=== PATIENT | male | born 1955 | race Caucasian/White ===

== ENCOUNTER → 2016-07-27 | Outpatient (CLI) | payer BC ==
[~2016-07-27] MED LIST: ALBU83IN INH; ASPI1TAB PO; IRON65TA PO; LABE10TAB PO; LOSA100T36 PO; PANT40TA2 PO; PERC10TA17 PO; PRED10PA PO; PRED10TA PO; SIMV20TA2 PO; SYMB16INH INH; iron
--- NOTE | 2016-07-28 10:17 | REP ---
PET/CT: History: Restaging lung cancer. Comparisons: Comparison PET-CT studies are from February 10, 2016 and August 06, 2015. Comparison CT studies, the most recent of which is from July 12, 2016 showed a new cavitating somewhat irregular nodule in the right lower lobe. This measures [address] TECHNIQUE: 64 minutes following the intravenous injection of a 7.2 mCi dose of F-18 FDG, three-dimensional PET scintigraphy is acquired from the skull base to the proximal thighs. Triplanar noncontrast CT scanning is acquired through the same anatomic range for attenuation correction, and image registration with scan parameters optimized to minimize radiation exposure to the patient. PET scintigraphy and CT datasets were fused and displayed on a workstation with multiplanar and projection display capability. PET/CT Findings: There is new asymmetric hypermetabolic uptake in the floor of the mouth and tongue base on the left with an area of hypermetabolic uptake maximum standard uptake value ranging up to 8.0. This should be correlated with physical exam findings and conventional head and neck imaging. There is somewhat asymmetric uptake in the aryepiglottic folds but this is likely normal variant. An Cpoism-O-Vkjp catheter is again seen in place. There is hypermetabolic garima uptake in the left paratracheal region with maximum standard uptake value 8.0. This garima focus measures 2.3 cm. This appears to be recurrent activity compared to the original PET-CT and the January PET-CT. The new cavitary nodule in the right lower lobe on recent CT study is hypermetabolic, maximum standard uptake value 6.2. This is consistent with a metastatic nodule. There is a small left pleural effusion and a moderate pericardial effusion. No hypermetabolic uptake is seen within either fluid collection. No adrenal hypermetabolic uptake is observed. FDG distribution in the abdomen and pelvis remains unremarkable. Impression: 1. There is evidence of recurrent left mediastinal hypermetabolic adenopathy. 2. The cavitary new nodule in the right lower lobe shows hypermetabolic suspicious uptake. 3. There is abnormal hypermetabolic uptake asymmetrically in the left posterior tongue base and floor of the mouth. This is of uncertain significance. Metastatic adenopathy cannot be excluded. Consider soft-tissue neck CT. Signed by Jeff Porter MD 07/28/2016 12:07 P
== END ==
LOC: M RAD 16:34
PROVIDERS: ATTEND Internal Medicine Medical Oncology
DX: R63.4 Abnormal weight loss (principal); R19.7 Diarrhea, unspecified; K58.9 Irritable bowel syndrome, unspecified
CPT/HCPCS: 78815; A9552

== ENCOUNTER → 2016-08-22 | Day surgery (SDC) | payer BC ==
[~2016-08-22] VITALS: Ht 175.3 cm; Wt 68.4 kg
[~2016-08-22] MED LIST changes: +EPINEPHrine 1MG/10ML SYRINGE 1.5IN As Ordered ONE; +GLYCOPYRROLATE INJ 0.2 MG/ML 2 ML VIAL As Ordered ONE; +LIDOCAINE 2% INJ 100 MG/5 ML SDV (FOR ANES.) As Ordered ONE; +LIDOCAINE VISCOUS 2% SOLN 15ML UDC As Ordered ONE; +LIDOCAINE VISCOUS 2% SOLN 15ML UDC XX ONE; +LR 1,000 ML IV SCH; +MIDAZOLAM INJ 2 MG/2 ML VIAL (J2250) As Ordered ONE; +NEOSTIGMINE 1MG/ML 5 ML SYRINGE (J2710) As Ordered ONE; +NORCO, ANEXSIA 5/325MG TABLET (HYDROcodone/ACETAMINOPHEN) PO PRN; +ONDANSETRON 4MG/2ML VIAL (J2405) IV PRN; +PERC5TAB6 PO; +PHENYLephrine HCL 500 MCG/5 ML (100MCG/ML) SYRINGE (J2370) As Ordered ONE; +PROPOFOL 200 MG/20 ML VIAL As Ordered ONE; +ROCURONIUM BROMIDE 50 MG/5 ML VIAL As Ordered ONE; +SLOW45TA PO; +dexameTHASONE 4 MG/ML 1ML VIAL (J1100) As Ordered ONE; +fentaNYL 100 MCG/2 ML INJECTION (J3010) As Ordered ONE; +fentaNYL 100 MCG/2 ML INJECTION (J3010) IV PRN
--- NOTE | 2016-08-22 10:52 | RO ---
DATE OF PROCEDURE: 08/22/2016 PREOPERATIVE DIAGNOSES: Right lower lobe lesion, abnormal chest CT, left lower lobe abnormalities, hilar abnormalities on the left. POSTPROCEDURE DIAGNOSES: Right lower lobe lesion, abnormal chest CT, left lower lobe abnormalities, hilar abnormalities on the left. FINDINGS: The superior segment of the left lower lobe was abnormal with pale mucosa and radiation changes. There was a saber shaped trachea. PROCEDURE: Bronchoscopy with electromagnetic navigation to the right lower lobe lesion and endobronchial ultrasound of the mediastinum and left hilar region. PROCEDURALIST: Dr. Ibanez BRUSH MACHINE SETTER: None. SPECIMENS OBTAINED: 1. Right lower lobe cytology needle brush 2. Right lower lobe transbronchial biopsy. 3. Right lower lobe GenCut FNA 4. Right lower lobe lavage. COMPLICATIONS: There were no observed complications. DESCRIPTION OF PROCEDURE: After informed consent was reviewed with the patient in the preoperative area, he was brought back to the operating room suite. Time-out was performed with two patient identifiers identifying correct site, correct position. The patient was placed in the supine position and general anesthesia was initiated. After adequate sedation, the patient was handed over to mt. The 1T-180 bronchoscope was then inserted through the 8.5 endotracheal tube with Cetacaine spray. The airways were abnormal. The trachea was saber shaped. Diane was sharp without splaying. Right and left mainstem bronchus was normal except for mucus. Right upper lobe, right middle lobe and lower lobe were normal without endobronchial lesions. RB 1 through 10 was normal without endobronchial lesions. The left upper lobe and lingula were normal. LB1 through 5 was normal without endobronchial lesions. The superior basal segment of the left lower lobe was swollen and pale with a fishmouth opening. There were no other abnormalities in the left lower lobe. No endobronchial lesions. The bronchoscope was then withdrawn into the trachea. Automatic registration was performed and confirmed. The right lower lobe lesion was easily navigated to in the superior basal segment. Fluoroscopy confirmed adequate placement. Cytology brushes and cytology needle brushes were then taken. This was followed by multiple transbronchial biopsies. This was followed by a GenCut fine needle aspiration times two. After this was performed, right lower lobe lavage was performed of this area. After assurance of adequate hemostasis, the bronchoscope was removed. The endobronchial ultrasound was then placed. The entire mediastinum was viewed. There was no significant lymphadenopathy available for biopsy 4R-4L stations were viewed with normal appearing tissue and vasculature. The subcarinal area was also reviewed with normal vasculature. The left hilum and airways of the left lower lobe were also ultrasounded without any obvious source of biopsy. I also ultrasounded the right hilum without any significant adenopathy. Therefore no endobronchial ultrasound samples were obtained. Pictures were taken of multiple garima stations to show that there was no significant presence of lymph tissue. The bronchoscope was then removed. The patient was extubated and is in recovery. There were no observed complications. Postprocedure chest x-ray is pending.
--- NOTE | 2016-08-22 10:54 | REP ---
FLUOROSCOPIC GUIDANCE FOR ENDOSCOPIC LUNG BIOPSY: 08/22/2016. Clinical history: Right lower lobe hot nodule on PET scan, nodule on CT. This single view from C-arm fluoroscopy provided to Dr. Ibanez of the Pulmonology Division shows a right mainstem bronchus and scope with probe extending into the right lower lobe overlying a density consistent with the known right lower lobe peripheral nodule. Fluoroscopy time 0.4 minutes. Signed by Tang Wells MD 08/22/2016 04:20 P
--- NOTE | 2016-08-22 11:07 | REP ---
AP PORTABLE CHEST: 08/22/2016 at 10:45 A.M. Clinical history: Status post bronchoscopy for superior segment right lower lobe nodule. Comparison portable chest 06/21/2016, CT chest 06/21/2016, PET CT 07/27/2016. Indwelling left subclavian port catheter tip in SVC again seen. There is some perihilar fullness and peripheral stranding in the perihilar region on the left again seen with retrocardiac density that may reflect atelectasis or effusion. Opacity in the right mid lung zone representing the nodule seen on PET CT and chest CT as well as the prior radiograph. No pneumothorax or right effusion. The perihilar changes and retrocardiac opacity on the left are increased since the June exam. Signed by Tang Wells MD 08/22/2016 04:21 P
[2016-08-22 11:40] VITALS: BP 148/89
== END | disposition home or self-care (01) ==
LOC: M SDC 07:58
PROVIDERS: ATTEND Internal Medicine Pulmonary Disease
DX: C34.32 Malignant neoplasm of lower lobe, left bronchus or lung (principal); C10.9 Malignant neoplasm of oropharynx, unspecified; J44.9 Chronic obstructive pulmonary disease, unspecified; I10 Essential (primary) hypertension; E78.00 Pure hypercholesterolemia, unspecified; I73.9 Peripheral vascular disease, unspecified; K21.9 Gastro-esophageal reflux disease without esophagitis; R29.898 Other symptoms and signs involving the musculoskeletal system; Z79.899 Other long term (current) drug therapy; Z87.891 Personal history of nicotine dependence; Z95.828 Presence of other vascular implants and grafts; Z92.21 Personal history of antineoplastic chemotherapy; Z92.3 Personal history of irradiation
CPT/HCPCS: 31623; 31624; 31627; 31628; 31629; 71010; 76000; 88104; 88108; 88172; 88173; 88305; 88313; J1100; J2250; J2370; J2710; J3010

== ENCOUNTER → 2016-08-24 | Day surgery (SDC) | payer BC ==
[~2016-08-24] VITALS: Ht 175.3 cm; Wt 69.6 kg
[~2016-08-24] MED LIST changes: -EPINEPHrine 1MG/10ML SYRINGE 1.5IN As Ordered ONE; +EPINEPHrine 1MG/ML INJ 30ML MD-VIAL As Ordered ONE; +EPINEPHrine 1MG/ML INJ 30ML MD-VIAL XX ONE; -LIDOCAINE VISCOUS 2% SOLN 15ML UDC As Ordered ONE; -LIDOCAINE VISCOUS 2% SOLN 15ML UDC XX ONE; +LIDOCAINE W/EPINEPHRINE 1% 20ML VIAL As Ordered ONE; +MEPERIDINE INJ 25 MG/ML VIAL (J2175) IV PRN; +METHYLENE BLUE 1% 10 ML VIAL (Q9968) As Ordered ONE; +METOCLOPRAMIDE INJ 10MG/2ML VIAL (J2765) IV PRN; -NORCO, ANEXSIA 5/325MG TABLET (HYDROcodone/ACETAMINOPHEN) PO PRN; +ONDANSETRON 4MG/2ML VIAL (J2405) As Ordered ONE; +PERCOCET 5MG/325MG TAB PO PRN; +SEVOFLURANE INHAL SOLN 250 ML BTL As Ordered ONE; -dexameTHASONE 4 MG/ML 1ML VIAL (J1100) As Ordered ONE; +dexameTHASONE 4 MG/ML 1ML VIAL (J1100) IV ONE
[2016-08-24 14:40] VITALS: BP 119/65
--- NOTE | 2016-08-25 08:35 | RO ---
DATE OF PROCEDURE: 08/24/2016 PREPROCEDURE DIAGNOSIS: Swelling of the left base of the tongue. POSTPROCEDURE DIAGNOSIS: Swelling of the left base of the tongue. PROCEDURE PERFORMED: Direct suspension laryngoscopy with biopsy of the left base of the tongue. SURGEON: Jacob Lopez MD BLASTING CLAY MINER: ANESTHESIA: General. CLINICAL PREAMBLE: This 60-year-old man with a history of squamous cell carcinoma, as well as lung carcinoma and is being considered for additional chemotherapy. CT scan of the neck revealed swelling of the left base of the tongue. Biopsy of the base of tongue tissue is being considered to allow better selection of the chemotherapy regimen. As such, surgery listed above has been discussed. The patient understood and consented to the procedure. DESCRIPTION OF PROCEDURE: The patient was identified in preoperative holding and brought to the operating room in stable condition. He was laid in supine position on the operating table. The patient received general anesthesia followed by orotracheal intubation with a #6 endotracheal tube without incident. The patient was prepped and draped in the usual fashion for the procedure. The upper was protected using the wet 4 x 4 sponge. Bimanual palpation of the oral tongue, base of tongue, buccal mucosa, posterior pharyngeal wall and lateral pharyngeal wall showed some fullness over the left tongue base area. The Dedo Pilling laryngoscope was introduced. There was no mucosal lesion noted in the oral cavity, oropharynx, supraglottis, false cords, and the true cords. The rigid scope was then directed towards the left base of tongue area. Biopsies were obtained from the left base of tongue region. Hemostasis was using cottonoid pledgets soaked in 1:100,000 epinephrine. At the end of the procedure, sponge and instrument counts were correct. No complications. Estimated blood loss was less than 2 mL. General anesthesia was reversed, and the patient was extubated and brought to the recovery room in stable condition.
== END | disposition home or self-care (01) ==
LOC: M SDC 09:53
PROVIDERS: ATTEND Otolaryngology
DX: R22.0 Localized swelling, mass and lump, head (principal); C10.9 Malignant neoplasm of oropharynx, unspecified; C34.32 Malignant neoplasm of lower lobe, left bronchus or lung; J38.00 Paralysis of vocal cords and larynx, unspecified; K21.9 Gastro-esophageal reflux disease without esophagitis; I10 Essential (primary) hypertension; J42 Unspecified chronic bronchitis; J34.2 Deviated nasal septum; R06.02 Shortness of breath; Z79.899 Other long term (current) drug therapy; Z87.891 Personal history of nicotine dependence; Z92.21 Personal history of antineoplastic chemotherapy; Z92.3 Personal history of irradiation; Z95.828 Presence of other vascular implants and grafts
CPT/HCPCS: 31535; 88305; J1100; J2250; J2370; J2405; J2710; J3010; Q9968

== ENCOUNTER → 2016-08-26 | Outpatient (REF) | payer BC ==
[~2016-08-26] MED LIST changes: -EPINEPHrine 1MG/ML INJ 30ML MD-VIAL As Ordered ONE; -EPINEPHrine 1MG/ML INJ 30ML MD-VIAL XX ONE; -GLYCOPYRROLATE INJ 0.2 MG/ML 2 ML VIAL As Ordered ONE; -LIDOCAINE 2% INJ 100 MG/5 ML SDV (FOR ANES.) As Ordered ONE; -LIDOCAINE W/EPINEPHRINE 1% 20ML VIAL As Ordered ONE; -LR 1,000 ML IV SCH; -MEPERIDINE INJ 25 MG/ML VIAL (J2175) IV PRN; -METHYLENE BLUE 1% 10 ML VIAL (Q9968) As Ordered ONE; -METOCLOPRAMIDE INJ 10MG/2ML VIAL (J2765) IV PRN; -MIDAZOLAM INJ 2 MG/2 ML VIAL (J2250) As Ordered ONE; -NEOSTIGMINE 1MG/ML 5 ML SYRINGE (J2710) As Ordered ONE; -ONDANSETRON 4MG/2ML VIAL (J2405) As Ordered ONE; -ONDANSETRON 4MG/2ML VIAL (J2405) IV PRN; -PERCOCET 5MG/325MG TAB PO PRN; -PHENYLephrine HCL 500 MCG/5 ML (100MCG/ML) SYRINGE (J2370) As Ordered ONE; -PROPOFOL 200 MG/20 ML VIAL As Ordered ONE; -ROCURONIUM BROMIDE 50 MG/5 ML VIAL As Ordered ONE; -SEVOFLURANE INHAL SOLN 250 ML BTL As Ordered ONE; -dexameTHASONE 4 MG/ML 1ML VIAL (J1100) IV ONE; -fentaNYL 100 MCG/2 ML INJECTION (J3010) As Ordered ONE; -fentaNYL 100 MCG/2 ML INJECTION (J3010) IV PRN
[2016-08-26 17:55] LABS: INR 1.06
== END ==
LOC: M LAB REF 16:55
PROVIDERS: ATTEND Internal Medicine Pulmonary Disease
DX: Z01.812 Encounter for preprocedural laboratory examination (principal); Z85.118 Personal history of other malignant neoplasm of bronchus and lung

== ENCOUNTER → 2016-08-29 | Outpatient (REF) | payer BC | LOC: M LAB REF 17:00 | PROVIDERS: ATTEND Internal Medicine Medical Oncology | DX: C34.90 Malignant neoplasm of unspecified part of unspecified bronchus or lung (principal) ==

== ENCOUNTER → 2016-09-08 | Outpatient (REF) | payer BC | LOC: M LAB REF 13:41 | PROVIDERS: ATTEND Internal Medicine Medical Oncology | DX: C34.90 Malignant neoplasm of unspecified part of unspecified bronchus or lung (principal) ==

== ENCOUNTER → 2016-09-09 | Outpatient (CLI) | payer BC ==
[~2016-09-09] MED LIST changes: +LIDOCAINE 1% MDV 20ML VIAL As Ordered ONE
--- NOTE | 2016-09-09 11:44 | REP ---
POST-BIOPSY PA CHEST: 09/09/2016. Clinical history: Status post needle biopsy nodule right lower lobe. Rule out pneumothorax. Technique: Expiratory PA chest. Comparison: CT chest 07/12/2016, chest x-ray 07/12/2016. Findings: There is an indwelling port catheter via the left subclavian route with tip in SVC. Linear atelectatic change in the left mid lung zone. Slight elevation left diaphragm. A small left effusion noted. Right lung shows mid lung nodular density below the level of the hilum in the lower chest. With significant magnification of the image, pleural line is seen at the right apex with a gap of about 12 mm. No right effusion. Impression: 1. Small right apical pneumothorax, only seen with significant magnification of the image and the pneumothorax air gap about 12 mm. No other new or significant finding. Cardiac silhouette, atelectatic change in the left lung. Left pleural effusion unchanged with nodule in the right base as before. 2. The patient should have a repeat chest x-ray in 2 hours also done with PA expiratory technique. Signed by Tang Wells MD 09/09/2016 04:41 P
--- NOTE | 2016-09-09 13:20 | REP ---
POST-BIOPSY PA CHEST: 09/09/2016 at 12:49 PM. Comparison: Portable chest earlier this morning, 08/22/2016, PA and lateral chest 07/12/2016. Clinical history: Status post needle biopsy right lower lobe nodule. Small apical pneumothorax on immediate postprocedure exam about 12 mm apical air gap. Findings: Current study shows the apical air gap smaller, now about 8 mm. No other interval change. There is again noted a small apical pneumothorax, slightly decreased from the previous study. The other findings, including the cardiac silhouette enlargement, linear atelectasis and left effusion are unchanged. Indwelling port catheter via the left subclavian route, unchanged. Impression: 1. Small right apical pneumothorax: An 8 mm apical air gap now present, previously 12 mm earlier this AM. No other change. Signed by Tang Wells MD 09/09/2016 04:44 P
--- NOTE | 2016-09-10 07:46 | REP ---
CT GUIDED RIGHT LOWER LOBE LUNG BIOPSY: The procedure was performed under the direct supervision of Dr. Wells. The patient has a history of a right lower lobe lung mass measuring 1.9 cm seen on a previous CT scan from [facility] performed on 08/09/2016. This was also seen as hypermetabolic on a previous PET scan performed on 07/27/2016. The risks and benefits of the procedure were explained to the patient and informed consent was obtained. The right lower lobe lung mass was localized using CT guidance. The skin was prepped and draped in a sterile fashion. 1% Xylocaine was used as a local anesthetic. Using CT guidance a 19/20-gauge coaxial needle biopsy system was inserted and advanced into the mass. Four core biopsy samples were obtained and sent to the lab. Followup images obtained after the needle was removed demonstrated a small right pneumothorax. At this point, the patient's O2 saturations were the same as when he arrived. The patient complained of no pain and his vital signs were stable. A single view PA expiration chest x-ray performed immediately after the procedure demonstrates a small right apical pneumothorax. A followup chest x-ray performed 2 hours later shows some improvement in the pneumothorax. The patient again states he has no discomfort and his vital signs are stable. Dr. Ibanez was made aware of these findings at the time of the procedure. The patient tolerated the procedure well and there were no immediate complications. After the appropriate amount of monitored convalescence the patient was discharged from the department. Reviewed by ADEN Simpson 09/12/2016 08:19 AEdited and Signed by Tang Wells MD 09/12/2016 11:34 A
== END ==
LOC: M RADPRO 09:51
PROVIDERS: ATTEND Internal Medicine Pulmonary Disease
DX: C34.31 Malignant neoplasm of lower lobe, right bronchus or lung (principal); J95.811 Postprocedural pneumothorax

== ENCOUNTER 2016-09-20 11:35 | Inpatient (IN) | payer BC ==
[2016-09-20] VITALS (28 sets, daily range): BP systolic 86–134; BP diastolic 50–77
[~2016-09-20] VITALS: Ht 175.3 cm; Wt 66.0 kg
[~2016-09-20 11:35] MED LIST changes: -FERR325T3 PO; -FLUT22IN INH; -ISOVUE-370 76% 100ML VIAL (Q9967) As Ordered ONE; -OXYC1TAB23 PO
[2016-09-20] MEDS ORDERED: NORCO, ANEXSIA 5/325MG TABLET (HYDROcodone/ACETAMINOPHEN) PO PRN (11:45)
[2016-09-20] MEDS ORDERED: ONDANSETRON 4MG/2ML VIAL (J2405) IV PRN (11:45)
[2016-09-20] MEDS ORDERED: BISACODYL 10 MG SUPP PR PRN (11:45)
[2016-09-20] MEDS ORDERED: LEVALBUTEROL 1.25 MG/0.5 ML CONCENTRATE NEB NEB PRN (11:45)
[2016-09-20] MEDS ORDERED: ACETAMINOPHEN TAB 650MG DOSE (2X325MG) PO PRN (11:45)
[2016-09-20] MEDS ORDERED: MIDAZOLAM INJ 2 MG/2 ML VIAL (J2250) As Ordered ONE ×2 (12:36→13:06)
[2016-09-20] MEDS ORDERED: LIDOCAINE 1% MDV 20ML VIAL As Ordered ONE (12:37)
[2016-09-20] MEDS ORDERED: FERR325T3 PO (12:40)
[2016-09-20] MEDS ORDERED: FLUT22IN INH (12:40)
[2016-09-20] MEDS ORDERED: OXYC1TAB23 PO (12:41)
[2016-09-20] MEDS ORDERED: KETOROLAC 30 MG/ML VIAL (J1885) IV SCH (13:00)
[2016-09-20] MEDS ORDERED: NOREPINEPHRINE 4 MG/4 ML AMP As Ordered ONE (13:11)
[2016-09-20] MEDS ORDERED: fentaNYL 100 MCG/2 ML INJECTION (J3010) As Ordered ONE (13:15)
[2016-09-20] MEDS ORDERED: LIDOCAINE 1% MDV INJ 50 ML VIAL SC ONE (13:30)
[2016-09-20] MEDS ORDERED: fentaNYL 100 MCG/2 ML INJECTION (J3010) IV ONE (13:30)
[2016-09-20] MEDS ORDERED: MIDAZOLAM INJ 2 MG/2 ML VIAL (J2250) IV SCH (13:30)
[2016-09-20] MEDS ORDERED: SODIUM CHLORIDE 0.9% 1000 ML IV ONE (13:30)
[2016-09-20] MEDS ORDERED: KETOROLAC 30 MG/ML VIAL (J1885) IV ONE (13:30)
[2016-09-20 13:41] LABS: ABG BASE EXCESS 1.6 (-2.0-2.0); ABG HCO3 26.2 MEQ/L (22.0-26.0); ABG PARTIAL PRESSURE CO2 41.3 mmHg (35.0-45.0); ABG PARTIAL PRESSURE O2 111.7 mmHg (75.0-100.0); ABG TOTAL CO2 27.5 MEQ/L (23.0-31.0); ABG pH (ARTERIAL) 7.421 UNITS (7.350-7.450)
[2016-09-20] MEDS: KCL 20MEQ IN D5/NS 1000ML 1,000 ML IV SCH (14:06)
[2016-09-20] MEDS: ceFAZolin SOD 1 GM in D5W MINI-BAG PLUS 50 ML IV SCH ×2 (14:12→22:37)
[2016-09-20] MEDS ORDERED: LIDOCAINE 1% MDV 20ML VIAL SC ONE (14:15)
[2016-09-20] MEDS: LEVALBUTEROL 1.25 MG/0.5 ML CONCENTRATE NEB NEB SCH ×2 (14:19→19:06)
[2016-09-20] MEDS: PERCOCET 5MG/325MG TAB PO PRN ×2 (14:25→19:35)
--- NOTE | 2016-09-20 14:38 | REP ---
PORTABLE CHEST, ONE VIEW: HISTORY: Postprocedure. COMPARISON: 09/09/2016. Patchy density is present in the left lower lobe consistent with atelectasis or infiltrate. There has been a decrease in the left pleural effusion. Patchy density is present in the left perihilar area consistent with atelectasis or infiltrate. A chest tube is present in the left hemithorax. A small 10 mm left apical pneumothorax is present. A 1.8 cm nodule is present in the right lower lobe. The heart is normal in size. The pulmonary vasculature is normal in appearance. IMPRESSION: 1. Left perihilar and lower lobe atelectasis or infiltrate. 2. Left pleural effusion decreased compared to the previous study. 3. 1.8 cm right lower lobe parenchymal nodule. 4. 10 mm left apical pneumothorax. A chest tube is present in the left hemithorax. Signed by Mac Gutierrez MD 09/20/2016 02:42 P
--- NOTE | 2016-09-20 15:05 | CCN ---
DATE: 09/20/2016 Critical care one hour: This excludes all procedures Mr. Burgess presented to Dr. Mari Harkins' office in oncology today with increased symptoms. Chest CT showed enlarging pericardial effusion, enlarging pleural effusion. He was sent to the intensive care unit (ICU) and I assisted Dr. Saleem with pericardiocentesis and thoracentesis by managing his oxygenation and blood pressure during these procedures. He had a clinically significant pericardial effusion pending tamponade physiology and therefore the pericardial tube was placed first. This was followed by a chest tube on the left. During that time, I managed his pain, sedation and fluid administration. He remained critically ill with a soft blood pressure. After the procedure was over, he had some clinical improvement. However, his blood pressure remains soft. 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 He also has a history of a stage I squamous cell carcinoma of the left retromolar trigone region and has some difficulty with swallowing. He usually takes a liquid diet. He has known chronic obstructive pulmonary disease, stage II. He had increased shortness of breath. No hemoptysis. No fever or chills but decreased appetite. PHYSICAL EXAMINATION: Temperature is 98.1, pulse is 104, respiratory rate of 16, blood pressure is 122/75 with an oxygen saturation of 99% on four liters. HEENT: Sclerae clear and anicteric. Pupils equal and react to light. Mucous membranes are moist without lesions. Tongue is midline. Neck is supple. No tracheal deviation or mass. No thyromegaly. PULMONARY: Decreased breath sounds throughout, especially at the left base. His chest tube has an air leak, pericardial tube is draining serosanguineous fluid. HEART: Sounds are distant without audible murmur, rub, or gallop. ABDOMEN: Soft, nontender, nondistended, scaphoid in nature. EXTREMITIES: No cyanosis or clubbing. Bruising of different stages without significant hematoma. NEUROLOGIC: No unilateral weakness or tremor. MUSCULOSKELETAL: Some muscle wasting without evidence of fracture or joint effusion. LABORATORY EVALUATION: Shows arterial blood gas with a pH of 7.42, pCO2 of 41, and pO2 of 111. Laboratories are still pending. Chest tube is in good position. Pericardial tube also in good position with significant improvement of the pericardial effusion, significant near resolution of the left pleural effusion with some fluid remaining in the fissure. Right nodules unchanged. IMPRESSION: 1. Acute respiratory distress. I performed management of airway and oxygenation during the procedures by Dr. Saleem. I will continue to monitor respiratory status and treat pain as necessary. 2. COPD: I have added Symbicort to his inhaled regimen. 2. Chronic protein malnourishment with difficulty swallowing. I have added Ensure to his diet. I will continue to follow him in the intensive care unit (ICU) due to his critical illness, pericardial effusion, and risk for respiratory failure. JOVI
[2016-09-20 15:30] LABS: RBC PERICARDIAL FLUID < 10 mm3/uL; TNC PERICARDIAL FLUID 32 cells/uL (0-20)
[2016-09-20 15:30] LABS: RBC PLEURAL FLUID 17 (<10mm3 cells/uL); TNC PLEURAL FLUID 1283 cells/uL (0-20)
[2016-09-20 15:38] LABS: LDH, BODY FLUID 150 U/L (NOT ESTABLISHED); TOTAL PROTEIN, BODY FLUID 4.8 G/DL (NOT ESTABLISHED)
[2016-09-20 15:38] LABS: LDH, BODY FLUID 139 U/L (NOT ESTABLISHED); TOTAL PROTEIN, BODY FLUID 4.5 G/DL (NOT ESTABLISHED)
[2016-09-20 16:04] LABS: BF DIFF IF INDICATED? YES (NO)
[2016-09-20 16:04] LABS: BF DIFF IF INDICATED? YES (NO)
[2016-09-20 16:15] LABS: CC BF DIFF EXAM CYTOCENTRIFUGE
[2016-09-20 16:18] LABS: CC BF DIFF EXAM CYTOCENTRIFUGE
[2016-09-20] MEDS: DOCUSATE SODIUM 100 MG CAP PO SCH ×2 (16:22→21:00)
[2016-09-20] MEDS: MOM 30ML SUSPENSION UDC PO SCH (16:23)
[2016-09-20 17:20] LABS: BASO % 0.2 % (0.0-1.0); EOS # 0.1 K/mm3 (0.0-0.50); EOS % 1.3 % (0.0-3.0); LARGE UNSTAINED CELL # 0.1 K/mm3 (0.0-0.4); LARGE UNSTAINED CELL % 1.1 % (0.0-4.0); LYMPH # 0.3 K/mm3 (1.5-4.5); LYMPH % 3.9 % (24.0-44.0); MEAN CORPUSCULAR HGB CONC 32.6 g/dl (32.0-36.5); MONO # 0.4 K/mm3 (0.0-0.8); MONO % 4.7 % (0.0-5.0); NEUTROPHILS # 7.2 K/mm3 (1.8-7.7); NEUTROPHILS % 88.9 % (36.0-66.0); PLATELET COUNT, AUTOMATED 329 k/mm3 (150-450); RED CELL DISTRIBUTION WIDTH 12.4 % (11.5-14.5)
[2016-09-20 17:37] LABS: ANION GAP 8 MEQ/L (8-16); BLOOD UREA NITROGEN 7 MG/DL (7-18); CALCIUM LEVEL 8.6 MG/DL (8.8-10.2); CARBON DIOXIDE LEVEL 28 MEQ/L (21-32); CHLORIDE LEVEL 95 MEQ/L (98-107); CREATININE FOR GFR 0.65 MG/DL (0.70-1.30); GLOMERULAR FILTRATION RATE > 60.0 (>49); GLUCOSE, FASTING 136 MG/DL (80-110); POTASSIUM SERUM 4.2 MEQ/L (3.5-5.1); SODIUM LEVEL 131 MEQ/L (136-145)
[2016-09-20] MEDS: KETOROLAC 30 MG/ML VIAL (J1885) IV SCH (19:36)
[2016-09-20] MEDS: SYMBICORT 160/4.5MCG INHALER 6GM INH SCH (19:37)
--- NOTE | 2016-09-20 19:40 | ECHO ---
DATE OF PROCEDURE: 09/20/2016 REFERRING PHYSICIAN: Dr. Saloni Martinez INDICATION: Dyspnea. HEIGHT: 175 cm WEIGHT: 72 kg. MEASUREMENTS: None obtained. DOPPLER MEASUREMENTS: None obtained. DESCRIPTION: Rhythm was sinus. This is a 2D and color flow Doppler examination. This study was obtained prior to pericardiocentesis. CONCLUSIONS: 1. Large circumferential pericardial effusion without diastolic chamber collapse. Pericardiac effusion measured 1.4 cm over the left ventricle apex, 2.5 cm over the left ventricle inferior wall posteriorly near the base and 1.2 cm over the anterior right ventricle free wall on the parasternal long axis view. No Doppler measurements or recordings were obtained; therefore unable to comment on respiratory variation of intracardiac velocities. 2. Left ventricle appeared normal in size and systolic function. Normal left ventricle (LV) systolic function. Left ventricle ejection fraction (LVEF) 60% by visual estimate. No regional wall motion abnormalities. 3. Mild mitral annular calcification. No mitral regurgitation seen. 4. Moderate aortic valve sclerosis of a three-cuspid aortic valve. No aortic stenosis.
[2016-09-21] VITALS (10 sets, daily range): BP systolic 90–142; BP diastolic 53–70
[2016-09-21] MEDS: LEVALBUTEROL 1.25 MG/0.5 ML CONCENTRATE NEB NEB SCH ×4 (01:32→20:00)
[2016-09-21] MEDS: KCL 20MEQ IN D5/NS 1000ML 1,000 ML IV SCH (01:39)
[2016-09-21] MEDS: PERCOCET 5MG/325MG TAB PO PRN ×5 (01:41→21:47)
[2016-09-21] MEDS: KETOROLAC 30 MG/ML VIAL (J1885) IV SCH ×4 (01:42→21:48)
[2016-09-21 05:00] LABS: ABG BASE EXCESS 0.4 (-2.0-2.0); ABG PARTIAL PRESSURE CO2 40.5 mmHg (35.0-45.0); ABG PARTIAL PRESSURE O2 72.4 mmHg (75.0-100.0); ABG STANDARD HCO3 24.8 MEQ/L (22.0-26.0); ABG TOTAL CO2 26.3 MEQ/L (23.0-31.0); ABG pH (ARTERIAL) 7.409 UNITS (7.350-7.450)
[2016-09-21 05:06] LABS: BASO % 0.4 % (0.0-1.0); EOS # 0.2 K/mm3 (0.0-0.50); EOS % 3.2 % (0.0-3.0); LARGE UNSTAINED CELL # 0.1 K/mm3 (0.0-0.4); LARGE UNSTAINED CELL % 1.5 % (0.0-4.0); LYMPH # 0.4 K/mm3 (1.5-4.5); MEAN CORPUSCULAR HEMOGLOBIN 30.6 pg (27.0-33.0); MEAN CORPUSCULAR HGB CONC 32.7 g/dl (32.0-36.5); MEAN CORPUSCULAR VOLUME 93.5 fl (80.0-96.0); MONO # 0.5 K/mm3 (0.0-0.8); MONO % 9.3 % (0.0-5.0); NEUTROPHILS % 78.7 % (36.0-66.0); PLATELET COUNT, AUTOMATED 290 k/mm3 (150-450); RED CELL DISTRIBUTION WIDTH 12.8 % (11.5-14.5); WHITE BLOOD COUNT 5.1 K/mm3 (4.0-10.0)
[2016-09-21 05:19] LABS: ANION GAP 7 MEQ/L (8-16); BLOOD UREA NITROGEN 7 MG/DL (7-18); CARBON DIOXIDE LEVEL 26 MEQ/L (21-32); CHLORIDE LEVEL 100 MEQ/L (98-107); CREATININE FOR GFR 0.58 MG/DL (0.70-1.30); GLOMERULAR FILTRATION RATE > 60.0 (>49); GLUCOSE, FASTING 100 MG/DL (80-110); POTASSIUM SERUM 4.1 MEQ/L (3.5-5.1); SODIUM LEVEL 133 MEQ/L (136-145)
[2016-09-21] MEDS: ceFAZolin SOD 1 GM in D5W MINI-BAG PLUS 50 ML IV SCH (06:18)
[2016-09-21] MEDS: SYMBICORT 160/4.5MCG INHALER 6GM INH SCH ×2 (08:01→21:13)
[2016-09-21] MEDS: MOM 30ML SUSPENSION UDC PO SCH (08:01)
[2016-09-21] MEDS: DOCUSATE SODIUM 100 MG CAP PO SCH ×2 (08:02→21:48)
--- NOTE | 2016-09-21 08:20 | HPE ---
DATE OF ADMISSION: 09/20/2016 Patient is seen at the urgent request of Dr. Mari Harkins. 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 He was seen in Dr. Hitchcock's office today of oncology and was found to have a moderate to large pericardial effusion with increasing pleural effusion and complaining of shortness of breath. Over the past couple of days, patient has noticed increased shortness of breath, essentially short of breath just at rest. He has had no cough, no fever, chills or sweats. There has been no sputum production. He has what he describes as a clutching, cramping chest pain in the middle of his chest. This pain does not radiate anywhere else. It is a pressure type, clawing pain. It has only occurred over the last couple of days. He has had no dysphagia although he is not able to chew and takes nutrition with liquid supplements. I asked Dr. Martinez n the emergency room and he was admitted directly to the intensive care unit (ICU) unit and a bed had become immediately available. Echocardiogram showed a large pericardial effusion with severe compression of the right atrium and some compression of the right ventricle. The septum is in the midline. There was a goodly anterior component to it. He also had a large pleural effusion seen on CT scan. He was first brought to my attention last August 2015 where he was found to have a left lower lobe lung mass with spread to the mediastinum. CT scan reveals lower lobe lung mass along with the mediastinal AP window was highly metabolic. His left lower lobe was found to be poorly differentiated squamous cell carcinoma. He therefore underwent chemotherapy. At that point in time, his symptomatology had dated 4 months when he started to notice that his voice was changing. He was becoming more hoarse and he could not speak with his normal volumes. He complained of shortness of breath with vigorous activities such as changing tires. He had a cough back then but with very little sputum production with vague anterior chest discomfort, but nothing like the clutching pain that he feels over the last couple of days. He was then found to have a left lower lobe lesion which was eventually biopsied and also shown to be squamous cell carcinoma. In the intensive care unit (ICU), he was normotensive and it was therefore decided because of the compression found on the echocardiogram, to undertake a percutaneous drainage. That was accomplished. See the procedure note. 700 mL of danette fluid was removed from the pericardium and 1200 of serosanguineous fluid was removed from the pleura. PAST MEDICAL ILLNESSES: 1. Retromolar trigone squamous cell carcinoma, the above right and left at least IIIA squamous cell carcinoma, now probably stage IV with metastasis to the right side. 2. Chronic obstructive pulmonary disease (COPD). 3. Hypertension. 4. History of nicotine dependence. 5. Peripheral vascular disease and carotid vascular disease status left carotid endarterectomy. PAST SURGERIES: The above left carotid endarterectomy in 2014. MEDICATIONS AT HOME: - albuterol nebulizers four times daily - Symbicort 160/4.5 twice daily - ferrous sulfate 325 mg daily - Flovent 120 mg two puffs twice daily - Percocet one tablet every 8 hours as needed pain - pantoprazole 40 mg daily TRAVEL HISTORY: He has traveled to the [facility] in the remote past to [place] as well as been to [facility] and [place]. HABITS: Prior smoker. He imbibes alcohol 3-4 beers a day. He used to smoke [place] cigarettes one pack per day for the last 40 years. He quit last year. EXPOSURES: No dogs, cats, birds at home. There is no prior exposure to tuberculosis. REVIEW OF SYSTEMS: Eyes: Without diplopia, without amaurosis fugax or prior jaundice. Nose without epistaxis. Mouth has dentures. Respiratory: See history of present illness. Cardiac: See history of present illness. No prior myocardial infarctions. He has been able to lay flat in bed. Gastrointestinal (GI): Without diarrhea, constipation, melena, hematochezia or abdominal pain. Genitourinary (): Without dysuria or hematuria, Endocrine: Without diabetes, without hypothyroidism. Neurologic: Without paresthesia, paralysis but had noticed his voice going hoarse in August 2015. Without prior seizures. Psychiatric: Without pathological anxieties, depression, psychoses. FAMILY HISTORY: To be determined at a later time. PHYSICAL EXAMINATION: Blood pressure is 148/89 with a heart rate of 86 in sinus rhythm, respiratory rate 18 without use of accessory muscles, he is 94% saturated on room air. His temperature is 97.8. General: He is a well developed, underweight white male in moderate distress with shortness of breath at rest. Eyes: Pupils equal, round and reactive to light. Extraocular motor intact. Sclera anicteric. Nose without deformity. Mouth shows his mucous membranes to be pink and moist. Lips and commissures without lesions. No thrush. Neck is supple, there is no jugular venous distention. No subcutaneous emphysema. Trachea is midline. There is no thyromegaly. There is no lymphadenopathy. Lungs show markedly decreased breath sounds on the left side with dull percussion on the left side. There is only mild E to A egophony. Right side shows normal vesicular sounds. Cardiac exam shows muffled heart sounds but without murmurs, clicks, gallops or rubs. I cannot feel his PMI. S1 and S2 are normal. Abdomen is soft, nontender, bowel sounds are positive. There is no hepatomegaly. No CVA tenderness. Extremities show no pretibial edema. No calf tenderness. No differential swelling of the upper extremities. Skin is warm, dry and perfused without cyanosis or mottling. Neuro shows II through XII intact with gross motor and gross sensation intact. Gait is not tested. Psychiatric shows him to be awake and alert, oriented times three with appropriate mood and affect and conversational. His white count is still pending as are his chemistries. Chemistries in June 2016 showed a BUN and creatinine of 13 and 0.57. Blood gases today show a pH of 7.42, pCO2 of 41 and pO2 of 111 with a base excess of 1.6. His PT/INR on 08/26/2016 was 13.9 and 1.06 respectively with a PTT of [address] done earlier today shows a moderate to large pericardial effusion with a large pleural effusion. This was done under angiographic protocol and there are no pulmonary emboli. The pericardial effusion is more prominent on the right than the left and more prominently posteriorly than anteriorly. I do not see any liver lesions. Adrenals look to be intact. Lung windows show a right lower lobe mass with what looks to be a lucent center. He has emphysematous changes particularly in the upper lobes. There is no significant paratracheal lymphadenopathy. There may be a flattened enlarged node along the aortic arch. Echocardiogram done at the bedside with me in attendance showed the moderate to large pericardial effusion which had a fairly generous anterior component to it. There was severe compression of the right atrium and some compression of the right ventricle. The ventricular septum was bowed to the right and was not shifted. IMPRESSION: 1. Pericardial effusion with compressive signs. 2. Pleural effusion probably malignant. 3. Stage IV squamous cell carcinoma of the lung. 4. Stage I retromolar trigone carcinoma squamous cell of the head and neck. 5. Hypertension. 6. Chronic obstructive pulmonary disease (COPD). 7. Immunosuppression secondary to chemotherapy. 8. Prior nicotine abuse. PLAN AND DISCUSSION: His life threatening emergent problem at this point in time is pericardial effusion. I think there is enough of an anterior component that I can drain this percutaneously. At the same time, I will also drain the left pleural effusion. I suspect that both of these are going to be malignant and they will be sent off for requisite labs including cytologies, hematology's, chemistries and bacteriology's. There is no evidence to suggest that this is infectious in nature. Right now, he is not hypotensive and therefore not in clinical tamponade but is about ready to enter tamponade as he has echocardiographic significant compressive signs. JOVI
--- NOTE | 2016-09-21 08:39 | REP ---
Chest x-ray: Two views. History: Pleural pericardial effusion. Comparison chest x-ray September 20, 2016. Comparison chest CT study September 20, 2016. Findings: The left chest tube is seen in place coursing posteriorly and medially. Right lower lobe lung mass. There is a pericardial drainage catheter coursing along the base of the heart and terminating posteriorly. There is a small pneumopericardium visible on the lateral radiograph. There is a left subclavian Zbcukk-X-Ddgi catheter terminating in the expected location of the superior vena cava. There is a 1.5 cm collection of air in the pleural space at the left lung apex indicating a small residual pneumothorax. Lastly, there is a 2.4 cm mass in the right lung base as seen on CT. There is slight blunting of the posterior pleural angles bilaterally. Impression: Small left-sided pneumothorax and small pneumopericardium with a drainage tubes in both of these spaces. Right lower lobe lung mass. Slight blunting of the posterior pleural angles bilaterally. Signed by Jeff Porter MD 09/21/2016 12:24 P
[2016-09-21] MEDS ORDERED: PANTOPRAZOLE 40MG INJ (PROTONIX) (C9113) IV SCH (09:00)
[2016-09-21] MEDS ORDERED: PANTOPRAZOLE 40MG TAB (PROTONIX) PO SCH (09:00)
--- NOTE | 2016-09-21 09:32 | IPN ---
DATE: 09/20/2016 Mr. Burgess is now hospitalized in the intensive care unit (ICU) following thoracentesis and pericardiocentesis by Dr. Saleem and Dr. Ibanez. He presented in the in the office this morning for scheduled pembrolizumab, would be his third scheduled treatment of this checkpoint inhibitor immunotherapy; however, he had progressive shortness of breath, his lung exam was clear, CT angio revealed large new left pleural effusion and large pericardial effusion. He was found to have tamponade physiology on admission to the emergency room and underwent immediate thoracentesis and pericardiocentesis. Samples sent for cytology. Of note, Dr. Saleem mentioned this appeared to be serous fluid. At the bedside, he is doing well, using inhaler. He reports pain at the site of his chest tube but otherwise breathing better. His vital signs are 105/61, heart rate 96, afebrile. Mr. Burgess speaks in full sentences with no difficulty. He appears calm. No accessory muscle use for breathing. His main issue right now is the pain at the site of the tube, for which he has already asked for some pain medications. He reports this is mild to moderate. Laboratories showed normal WBC. Hemoglobin/hematocrit 11 and 35, respectively. Platelets 329. IMPRESSION: Mr. Burgess is a 60-year-old man with metastatic squamous cell carcinoma of the lung involving the right lower lobe metastatic focus following original diagnosis 1 year ago for stage IIIB squamous cell carcinoma involving left upper lobe status post definitive chemoradiation. He also has left retromolar squamous cell carcinoma with evidence now of possible recurrence. He is scheduled for ENT evaluation following an initial nondiagnostic fine needle aspiration, though there is significant hypermetabolic uptake in the left base of the tongue area concerning for recurrence. He started immunotherapy with pembrolizumab, now approximately 5 weeks ago, has had two cycles tolerated reasonably well, though after the second he developed some mild shortness of breath prompting me to hold his third cycle. He was returning for same this morning when he reported progressive shortness of breath. This is also worrisome for an immunotherapy related adverse event of pneumonitis, which is common with pembrolizumab. However imaging demonstrated instead a large left pleural effusion and pericarditis. In retrospect, both of these were present in nascent form several months ago. What is not entirely clear is whether the effusions are malignancy related or treatment related. It is conceivable there is an inflammatory component to both, which could be related to pembrolizumab. If this is the case, high-dose steroids such as 1 mg/kg prednisone may be indicated. RECOMMENDATIONS: I would closely follow Mr. Burgess's breathing symptoms and oxygenation. Any new shortness of breath in the absence of recurrent effusion should prompt start of steroids empirically for presumptive treatment of pneumonitis. My reading of the literature is that the pneumonitis related to pembrolizumab can present without obvious findings on chest imaging. I have discussed the above with Dr. Marcelle meng. I will be away September 21, through September 25. Dr. Bragg and Dr. Lorenz will be covering and can be consulted on an as-needed basis.
--- NOTE | 2016-09-21 11:10 | RO ---
DATE OF PROCEDURE: 09/20/2016 PREOPERATIVE DIAGNOSIS: Large pericardial effusion with compression. POSTOPERATIVE DIAGNOSIS: Large pericardial effusion with compression. PROCEDURE: Pericardiocentesis with tube pericardiostomy. SURGEON: Dr. Bola Saleem FLYING SQUAD WORKER: ANESTHESIA: PROCEDURE: With echocardiographic control, the patient's subxiphoid and epigastrium were prepped and draped in the usual sterile fashion. The epigastrium was infiltrated with 1% Xylocaine down to the rectus muscle. An explorer needle was placed and on the third pass clear fluid could be obtained. A wire was placed. Its position was confirmed by echocardoigraphy. The tract was successively dilated through the rectus muscle and a central line catheter was placed first. This withdrew 3 mL of clear danette fluid. The tract was dilate some more and a large percutaneous drainage tube was then placed. It was then connected to a Johansen bag and drained of 700 mL of this same type of fluid. This was sent for requisite studies including hematologies, cytologies, bacteriologies and chemistries. The pericardial effusion disappeared by echocardiogram. The tube was connected to a Pleur-evac.
--- NOTE | 2016-09-21 11:21 | RO ---
DATE OF PROCEDURE: 09/20/2016 PREOPERATIVE DIAGNOSIS: Left pleural effusion. POSTOPERATIVE DIAGNOSIS: Left pleural effusion. PROCEDURE: Insertion of posterolateral chest tube. SURGEON: Dr. Bola Saleem BLOCK AND CASE MAKER: ANESTHESIA: FINDINGS: The chest tube eluted 1200 mL of serosanguineous fluid. It was sent for requisite cultures, cytologies, chemistries and bacteriologies. PROCEDURE: Under satisfactory moderate sedation already achieved with 6 mg of Versed, the patient was prepped and draped in the usual sterile fashion. Incision was made and a tunnel was created in the chest. A #24 chest tube was placed with the above results. The chest tube was secured to the chest wall with #2 Tevdek suture and was connected to the Pleur-evac. The patient tolerated the procedure well and a chest x-ray is pending.
[2016-09-22] VITALS: BP 101/61
[2016-09-22] MEDS: LEVALBUTEROL 1.25 MG/0.5 ML CONCENTRATE NEB NEB SCH ×4 (01:58→20:00)
[2016-09-22] MEDS: KETOROLAC 30 MG/ML VIAL (J1885) IV SCH ×4 (02:16→20:20)
[2016-09-22] MEDS: PERCOCET 5MG/325MG TAB PO PRN ×4 (02:18→20:19)
[2016-09-22 04:00] VITALS: BP 112/59
[2016-09-22 05:13] LABS: BASO % 0.3 % (0.0-1.0); EOS # 0.5 K/mm3 (0.0-0.50); EOS % 7.7 % (0.0-3.0); LARGE UNSTAINED CELL # 0.1 K/mm3 (0.0-0.4); LARGE UNSTAINED CELL % 1.2 % (0.0-4.0); LYMPH # 0.4 K/mm3 (1.5-4.5); LYMPH % 4.6 % (24.0-44.0); MEAN CORPUSCULAR HEMOGLOBIN 30.9 pg (27.0-33.0); MEAN CORPUSCULAR HGB CONC 33.4 g/dl (32.0-36.5); MEAN CORPUSCULAR VOLUME 92.4 fl (80.0-96.0); MONO # 0.5 K/mm3 (0.0-0.8); MONO % 6.6 % (0.0-5.0); NEUTROPHILS # 5.4 K/mm3 (1.8-7.7); NEUTROPHILS % 79.6 % (36.0-66.0); PLATELET COUNT, AUTOMATED 309 k/mm3 (150-450); RED CELL DISTRIBUTION WIDTH 12.6 % (11.5-14.5); WHITE BLOOD COUNT 6.8 K/mm3 (4.0-10.0)
[2016-09-22 05:29] LABS: ANION GAP 5 MEQ/L (8-16); BLOOD UREA NITROGEN 7 MG/DL (7-18); CALCIUM LEVEL 8.4 MG/DL (8.8-10.2); CARBON DIOXIDE LEVEL 29 MEQ/L (21-32); CHLORIDE LEVEL 97 MEQ/L (98-107); CREATININE FOR GFR 0.62 MG/DL (0.70-1.30); GLOMERULAR FILTRATION RATE > 60.0 (>49); GLUCOSE, FASTING 82 MG/DL (80-110); SODIUM LEVEL 131 MEQ/L (136-145)
[2016-09-22 05:35] LABS: POTASSIUM SERUM 5.1 MEQ/L (3.5-5.1)
[2016-09-22] MEDS: SYMBICORT 160/4.5MCG INHALER 6GM INH SCH ×2 (06:48→19:40)
[2016-09-22] MEDS ORDERED: FUROSEMIDE 40 MG/4 ML VIAL (J1940) IV ONE (07:45)
[2016-09-22 07:49] VITALS: BP 119/73
[2016-09-22] MEDS: PANTOPRAZOLE 40MG TAB (PROTONIX) PO SCH (08:10)
[2016-09-22] MEDS: MOM 30ML SUSPENSION UDC PO SCH (08:10)
[2016-09-22] MEDS: DOCUSATE SODIUM 100 MG CAP PO SCH ×2 (08:10→20:20)
--- NOTE | 2016-09-22 08:19 | IPN ---
DATE: 09/21/2016 This is the first hospital day for Mr. Burgess status post a tube pericardiostomy and a tube thoracostomy. He is doing much better today, and in fact, can breathe much better. His pain is being well controlled with oral analgesics. I have taken his chest tubes off suction. His vital signs show a T-max of 98.9 with a heart rate that ranges between 83 and 91 in sinus rhythm, respiratory rate of 16 to 20 without the use of accessory muscles who is 94-95% saturated on room air. Blood pressure is ranging between 97/55 to 142/70. His intake and output over the past 24 hours has been recorded as 3100 in and 3315 out for a negativity of 215 mL. He has taken in 1250 mL of oral intake and 1850 mL in IV intake. His pericardial tube has put out 925 mL up until 12 midnight and his chest tube has put 1970 mL up until midnight. Since midnight, the past 13 hours, he has put out 300 mL from the pleural tube and 75 mL from the pericardial tube. On physical examination, his lungs show nearly normal vesicular sounds with some inspiratory crackles in the mid lung field on the left side. Percussion note is full to the diaphragm. Cardiac exam shows a pericardial friction rub three component and at the left lower sternal border and apex. S1 and S2 are normal. I cannot feel his PMI. Abdomen is soft, nontender, but tympanic. Bowel sounds are positive. There is no hepatomegaly. No CVA tenderness. Extremities show no pretibial edema. No calf tenderness. No differential swelling of the upper extremities. Skin is warm, dry and perfused without cyanosis or mottling including that of the nail beds and knees. Neck is supple. There is no jugular venous distention. No subcutaneous emphysema. Trachea is midline. Mouth shows his mucous membranes to be pink and moist. Lips and commissures are without lesions. No thrush. Eyes show his pupils to be equal and reactive. Extraocular motor intact. Sclera anicteric. Neuro shows II through XII intact with gross motor and gross sensation intact. Gait is not tested. Psychiatric shows him to be awake and alert, oriented times three with appropriate mood and affect and conversational. His white count today is 5.1 with hemoglobin and hematocrit of 10.7 and 32.8 compared to yesterday's of 11.5 and 35.3. Platelet count is 290 and stable and differential shows 78% neutrophils, 7% lymphocytes, 9% monocytes. There are no immature forms. No toxic granulations. Chemistries show mildly reduced sodium of 133 with the remainder of his electrolytes normal. BUN and creatinine are 7 and 0.58 with a glucose of 100 and a calcium of 8.0. Pericardial fluid analysis shows a pH of 7.73 with an LDH of 150 with a corresponding serum LDH of 133. There are only 32 nucleated cells, 78% of which were lymphocytes and 18% are neutrophils. Glucose 103. The pleural fluid pH was 7.5 with an LDH of 139 with a corresponding serum LDH as above. Glucose is 94 with total nucleated cell count of 1283, 53% of which were lymphocytes and 38% were neutrophils. Both of these therefore look like exudative processes but normal glycemic and lymphocytic predominant. We suspect this is going to represent malignant effusions. His chest x-ray today shows lung fully expanded to the chest wall. There may be a small apical pneumothorax on the left side from the chest tube placement. The costophrenic angles are sharp. The compressive infiltrative pattern yesterday has all but disappeared. Pericardial tube and pleural tube are in good position. Pericardial tube is in the posterior well of the pericardium. IMPRESSION: 1. Pericardial effusion with compression drained with a tube periostomy. 2. Pleural effusion probably malignant. 3. Stage IV squamous cell carcinoma of the lung. 4. 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 5. Hypertension. 6. Chronic obstructive pulmonary disease (COPD). 7. Immunosuppression secondary to chemotherapy. 8. Prior nicotine abuse. PLAN AND DISCUSSION: He has put out too much for me to remove the tubes today. We will await for cytology. Some of the chemistries and cell counts are suggestive of malignancy. The real technician terminal and repeater problem is going to be his pericardial and pleural effusions re-occurring. We will certainly have to watch those carefully and if they do, I should take a more pericardial window sooner rather than later but he has not present with compressive symptomatology. This will be done as an outpatient basis as far as observation goes. This does not look to be infective and he has no prior recent history of a viral upper respiratory infection (URI). This suggests a viral pericarditis.
--- NOTE | 2016-09-22 09:23 | REP ---
TWO VIEW CHEST: Two views of the chest are performed and compared to a prior study of 09/21/2016. Right lower lobe nodular opacity is unchanged, as is the opacity in the right costophrenic angle. There is a left chest tube again noted and a very small left apical pneumothorax, unchanged. Left Mediport catheter is unchanged. Cardiomediastinal silhouette is unchanged. Pericardial tube is unchanged. There is a small amount of pericardial air unchanged. IMPRESSION: Stable exam. Signed by Kota Moses MD 09/22/2016 04:40 P
[2016-09-22 10:47] VITALS: BP 122/62
[2016-09-22 16:00] VITALS: BP 108/65
[2016-09-22 20:00] VITALS: BP 112/65
--- NOTE | 2016-09-22 21:54 | IPN ---
DATE: 09/22/2016 Mr. Burgess continues to feel better and is breathing well. He is still putting too much out of the tubes to remove them. His vital signs show a maximum temperature (T max) of 97.8 with a heart rate that ranges between 95 and 89 and is sinus rhythm, respiratory rate of 18 to 16 without the use of accessory muscles who is 99% saturated on room air and his blood pressure is ranging between 108/65 to 122/62. His intake and output the past 24 hours has been recorded as 2490 in and 1915 out for a positivity of 575 mL. He has put out 600 mL from his pleural tube and 190 mL from the pericardial tube. Weight today is 67.4 kg compared to 66.1 kg yesterday. On physical examination, his left lung shows coarse inspiratory rhonchi and rales at the base. There may even be a pleural friction rub. Right lung shows no vesicular sounds. Cardiac exam shows a pericardial friction rub and tube sounds at the left lower sternal border and base. S1 and S2 are normal. I cannot feel his point of maximum impulse (PMI). Abdomen is soft and nontender. Bowel sounds are positive. There is no hepatomegaly. No costovertebral angle tenderness. Extremities show no pretibial edema. No calf tenderness. No differential swelling of the upper extremities. His skin is warm, dry and perfused without cyanosis or mottling, including that of the nail beds and the knees. Neck is supple. There is no jugular venous distention, no subcutaneous emphysema. Trachea is midline. Mouth shows his mucous membranes to be pink and moist. Lips and commissures without lesions. There is thrush. Eyes show his pupils to be equal and reactive. Extraocular motions intact. Sclerae anicteric. Neurologic shows II-XII intact along with gross motor and gross sensation intact. Gait is not tested. Psychiatric shows him to be awake and alert, oriented times three with appropriate mood and affect and conversational. His white count today is 6.8 with a hemoglobin and hematocrit of 11.4 and 34.1 and a platelet count of 309, essentially all unchanged from yesterday. Differential shows 79% neutrophils, 4% lymphocytes, 6% monocytes. There are no immature form, no toxic granulations. Electrolytes show a sodium of 131 with a potassium of 5.1, BUN and creatinine of 7 and 0.62 with a glucose of 82 and a calcium of 8.4. His chest x-ray today shows the lung fully expanded to the chest wall. There still might be an apical cap on the left side. Costophrenic angles are sharp. Cardiac silhouette is normal. Compressive atelectatic infiltrates are resolving. Chest tubes are in good place. Pericardial tube is in the posterior pericardial well. I have gone over the slides with Dr. Garza. Both the pleural and pericardial cell blocks do not show any malignancy. There are inflammatory cells. IMPRESSION: 1. Pericardial effusion with compression signs drained with a tube pericardiostomy continuing. 2. Pleural effusion, drained with a tube thoracostomy. 3. 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 4. 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 5. Hypertension. 6. Chronic obstructive pulmonary disease (COPD). 7. Immunosuppression secondary to chemotherapy. 8. Prior nicotine abuse. PLAN AND DISCUSSION: He has too much fluid to remove the tubes. His weight is up and his intake and output are positive. I will, therefore, diurese him. I will have to review his chart and speak to Dr. Roper regarding radiation therapy. He may have already had radiation therapy and this may all be explained by radiation serositis. Nonetheless, just because we do not see cells in the fluid samples and cell blocks, it does not mean it is not malignant and that the cells just are not shedding. Hopefully my diuresis will decrease the tube output, and we can remove the tubes fairly soon.
[2016-09-23] VITALS: BP 98/58
[2016-09-23] MEDS: LEVALBUTEROL 1.25 MG/0.5 ML CONCENTRATE NEB NEB SCH ×4 (01:42→20:00)
[2016-09-23 04:00] VITALS: BP 107/60
[2016-09-23] MEDS: KETOROLAC 30 MG/ML VIAL (J1885) IV SCH ×4 (04:04→19:37)
[2016-09-23] MEDS: PERCOCET 5MG/325MG TAB PO PRN ×4 (04:07→19:42)
[2016-09-23 05:24] LABS: ANION GAP 8 MEQ/L (8-16); BLOOD UREA NITROGEN 9 MG/DL (7-18); CALCIUM LEVEL 8.2 MG/DL (8.8-10.2); CARBON DIOXIDE LEVEL 28 MEQ/L (21-32); CHLORIDE LEVEL 95 MEQ/L (98-107); GLOMERULAR FILTRATION RATE > 60.0 (>49); GLUCOSE, FASTING 87 MG/DL (80-110); POTASSIUM SERUM 4.5 MEQ/L (3.5-5.1); SODIUM LEVEL 131 MEQ/L (136-145)
[2016-09-23 05:32] LABS: BASO % 0.3 % (0.0-1.0); EOS # 0.4 K/mm3 (0.0-0.50); EOS % 5.6 % (0.0-3.0); LARGE UNSTAINED CELL # 0.2 K/mm3 (0.0-0.4); LARGE UNSTAINED CELL % 2.1 % (0.0-4.0); LYMPH # 0.3 K/mm3 (1.5-4.5); LYMPH % 2.5 % (24.0-44.0); MEAN CORPUSCULAR HEMOGLOBIN 30.1 pg (27.0-33.0); MEAN CORPUSCULAR HGB CONC 32.8 g/dl (32.0-36.5); MEAN CORPUSCULAR VOLUME 91.8 fl (80.0-96.0); MONO # 0.5 K/mm3 (0.0-0.8); MONO % 6.8 % (0.0-5.0); NEUTROPHILS # 6.4 K/mm3 (1.8-7.7); NEUTROPHILS % 82.7 % (36.0-66.0); PLATELET COUNT, AUTOMATED 326 k/mm3 (150-450); RED CELL DISTRIBUTION WIDTH 12.7 % (11.5-14.5); WHITE BLOOD COUNT 7.8 K/mm3 (4.0-10.0)
[2016-09-23] MEDS: SYMBICORT 160/4.5MCG INHALER 6GM INH SCH ×2 (07:59→20:33)
[2016-09-23 08:00] VITALS: BP 100/60
[2016-09-23] MEDS: MOM 30ML SUSPENSION UDC PO SCH (09:00)
[2016-09-23] MEDS: DOCUSATE SODIUM 100 MG CAP PO SCH ×2 (09:00→20:40)
--- NOTE | 2016-09-23 09:03 | REP ---
CHEST, TWO VIEWS: HISTORY: Pericardial effusion. COMPARISON: 09/22/2016. A 2 cm nodule is present in the right lower lobe. Patchy density is present in the left lower lobe consistent with atelectasis or infiltrate. A chest tube is present in the left hemithorax. A very small apical pneumothorax is present. A pericardial tube is present. Pneumopericardium is present that is increased compared to the previous study. IMPRESSION: 1. 2 cm right lower lobe parenchymal nodule unchanged compared to the previous study. 2. Left lower lobe atelectasis or infiltrate. 3. A chest tube is present in the left hemithorax. A very small apical pneumothorax is present. 4. Pneumopericardium increased compared to the previous study. A pericardial tube is present. Signed by Mac Gutierrez MD 09/23/2016 09:48 A
[2016-09-23] MEDS: PANTOPRAZOLE 40MG TAB (PROTONIX) PO SCH (09:21)
[2016-09-23] MEDS: NYSTATIN 500,000 U/5 ML SUSP UDC SS SCH ×4 (09:26→22:00)
[2016-09-23 12:00] VITALS: BP 95/55
[2016-09-23] MEDS ORDERED: FUROSEMIDE 40 MG/4 ML VIAL (J1940) IV ONE (12:00)
[2016-09-23 16:00] VITALS: BP 100/56
[2016-09-23 20:00] VITALS: BP 119/66
[2016-09-24] VITALS: BP 98/55
[2016-09-24] MEDS: PERCOCET 5MG/325MG TAB PO PRN (01:46)
[2016-09-24] MEDS: KETOROLAC 30 MG/ML VIAL (J1885) IV SCH ×2 (01:46→07:49)
[2016-09-24 04:00] VITALS: BP 87/50
[2016-09-24] MEDS: LEVALBUTEROL 1.25 MG/0.5 ML CONCENTRATE NEB NEB SCH ×2 (04:23→08:00)
[2016-09-24 05:11] LABS: BASO % 0.2 % (0.0-1.0); EOS # 0.4 K/mm3 (0.0-0.50); EOS % 6.5 % (0.0-3.0); LARGE UNSTAINED CELL # 0.2 K/mm3 (0.0-0.4); LARGE UNSTAINED CELL % 2.8 % (0.0-4.0); LYMPH # 0.3 K/mm3 (1.5-4.5); LYMPH % 4.3 % (24.0-44.0); MEAN CORPUSCULAR HEMOGLOBIN 29.8 pg (27.0-33.0); MEAN CORPUSCULAR HGB CONC 32.8 g/dl (32.0-36.5); MEAN CORPUSCULAR VOLUME 90.9 fl (80.0-96.0); MONO # 0.4 K/mm3 (0.0-0.8); MONO % 6.1 % (0.0-5.0); NEUTROPHILS # 5.5 K/mm3 (1.8-7.7); PLATELET COUNT, AUTOMATED 329 k/mm3 (150-450); RED CELL DISTRIBUTION WIDTH 12.4 % (11.5-14.5); WHITE BLOOD COUNT 6.9 K/mm3 (4.0-10.0)
[2016-09-24 05:25] LABS: ANION GAP 5 MEQ/L (8-16); BLOOD UREA NITROGEN 9 MG/DL (7-18); CALCIUM LEVEL 8.5 MG/DL (8.8-10.2); CARBON DIOXIDE LEVEL 32 MEQ/L (21-32); CHLORIDE LEVEL 93 MEQ/L (98-107); GLOMERULAR FILTRATION RATE > 60.0 (>49); GLUCOSE, FASTING 87 MG/DL (80-110); POTASSIUM SERUM 4.6 MEQ/L (3.5-5.1); SODIUM LEVEL 130 MEQ/L (136-145)
--- NOTE | 2016-09-24 06:28 | IPN ---
DATE: 09/23/2016 Mr. Jenifer oswald is doing well today. He is not complaining of shortness of breath and his pain is being well controlled at the tube insertion sites. He has had no fever, chills or sweats. His vital signs show a maximum temperature (Tmax) of 97.8 with a heart rate that ranges between 85-92 in a sinus rhythm, respiratory rate of 18-22 without the use of accessory muscles who is 97-98% saturated on room air and his blood pressure is ranging between 99/58 to 107/60. His intake and output for the past 24 hours has been recorded as 2130 in and 1855 out for a positivity of 275 mL. He has put out 45 mL from his pericardial tube and 210 mL from the chest tube. Weight today is 645.4 kg compared to 67.4 kg yesterday. On physical examination, his lung show equal breath sounds on either side. He has coarse inspiratory rhonchi, which partially clear with coughing on the left side. Percussion notes are full the diaphragm. Cardiac exam is without murmurs or gallops, but he still has a pericardial friction rub, three components. I cannot feel his point of maximum impulse (PMI). S1, S2 are normal. Abdomen is soft and nontender. Bowel sounds are positive. There is no hepatomegaly. No costovertebral angle (CVA) tenderness. Extremities show no pretibial edema. No calf tenderness. No differential swelling of the upper extremities. Skin is warm, dry and perfused, without cyanosis or mottling including the nail beds and the knees. Neck is supple. There is no jugular venous distention. No subcutaneous emphysema. Trachea is midline. Mouth shows his mucous membranes to be pink and moist. Lips and commissures without lesions. Thrush is still present. Eyes show the pupils to be equal and reactive. Extraocular muscles intact. Sclerae anicteric. Neurologic shows II-XII intact, along with gross motor and gross sensation intact. Gait is not tested. Psychiatric shows him to be awake and alert, oriented times three with appropriate mood and affect and conversational. His white count today is 7.8, with a hemoglobin and hematocrit of 11.3 and 34.6, and a platelet count of 326 and stable. Differential shows 82% neutrophils, 2% lymphocytes, 6% monocytes. There are no immature forms. No toxic granulations. His electrolytes show a sodium of 131, with the remainder of his electrolytes essentially normal, and a BUN and creatinine of 9 and 0.60, glucose of 87 and calcium of 8.2. I have discussed pleural, pericardial chemistries and hematology in prior notes and all of his cell blocks have come back inflammatory cells. His chest x-ray today shows his lung fully expanded to the chest wall. Costophrenic angles are sharp. He has an obvious pneumopericardium. There is a lung lesion on the right side, which has been present since admission and which is well known. Pericardial tube is in the pericardial well posteriorly. IMPRESSION: 1. Pericardial effusion with compression drained with tube pericardiostomy. 2. Pleural effusion left side drained with a tube thoracostomy. 3. 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 4. 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 5. Hypertension. 6. Chronic obstructive pulmonary disease. 7. Immunosuppression secondary to chemotherapy. 8. Prior nicotine abuse. PLAN AND DISCUSSION: I will remove his chest tubes today. I will also continue to diurese him. I did not enter the nystatin ordered yesterday and I will do so today. I have gone over his radiation stubbs with Dr. Lane downstairs. He clearly got radiation to the mediastinum and to the lung. In the best case scenario this may represent radiation serositis. I am certainly hoping so. Nonetheless, things being common this is probably a malignant effusion, which just started shedding cells. The only way to find out is to do biopsies or remove the pericardium, which I am not going to do at this point in time and will continue to follow him. After removing his tubes, hopefully I will be able to discharge him tomorrow.
[2016-09-24 07:38] VITALS: BP 127/70
[2016-09-24] MEDS: SYMBICORT 160/4.5MCG INHALER 6GM INH SCH (08:08)
[2016-09-24] MEDS: MOM 30ML SUSPENSION UDC PO SCH (08:19)
[2016-09-24] MEDS: DOCUSATE SODIUM 100 MG CAP PO SCH (08:19)
[2016-09-24] MEDS: NYSTATIN 500,000 U/5 ML SUSP UDC SS SCH (08:22)
[2016-09-24] MEDS: PANTOPRAZOLE 40MG TAB (PROTONIX) PO SCH (08:22)
--- NOTE | 2016-09-24 09:35 | REP ---
REASON: Followup pericardial effusion. The left-side thoracotomy tubes have been removed. The central venous catheter tip is unchanged remaining in the superior vena cava. The air density in the mediastinum/pericardium is unchanged. The right lung nodule is unchanged. The left upper lobe opacity is unchanged. The osseous structures are unchanged. IMPRESSION: Removal of the chest tubes with no other significant changes as described above. Signed by Ras Jules DO 09/24/2016 10:05 A
--- NOTE | 2016-09-26 08:55 | DSES ---
DATE OF ADMISSION: 09/20/2016 DATE OF DISCHARGE: 09/24/2016 DISCHARGE DIAGNOSES: 1. Pericardial effusion with echocardiographic compression signs drained with tube pericardiostomy. 2. Left pleural effusion drained with tube thoracostomy. 3. 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 4. 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 5. Hypertension. 6. Chronic obstructive pulmonary disease. 7. Immunosuppression secondary to chemotherapy. 8. Prior nicotine abuse. HOSPITAL COURSE: The patient is a 60-year-old white male who has known Stage I squamous cell carcinoma of the trigone and the head and neck and additional IIIA squamous cell carcinoma of the lung. He is status post radiation to both the head and neck and to the mediastinum in the lung. A few days prior to admission on 09/20/2016, he noticed increasing shortness of breath which progressed to shortness of breath at rest. He had no cough, fever or chills or sweats. There was no sputum production. He described a clutching, cramping chest pain in the middle of the chest which did not radiate. He was seen in Dr. Harkins office of oncology and an echocardiogram showed a large pericardial effusion with severe compression of the right atrium. He was also seen to have a pleural effusion. I therefore directly admitted him to the intensive care unit and once confirming the size and distribution of the pericardial effusion did a tube pericardiostomy with a drainage of 700 mL of yellow serous fluid. A chest tube on the left was also placed which drained approximately 1200 mL of serosanguineous fluid. Fluid analysis was predominantly lymphocytic in both the pericardial and pleural effusions, normal glycemic and with LDHs consistent with an exudative process. Serum LDH was 133 and fluid LDHs of the pericardial fluid were 150 and pleural fluid 139. Cytological examination along with spun cell blocks did not reveal any malignancy, but rather reactive mesothelial cells. Pericardial and pleural tubes were removed when the fluid output was 210 and 45 mL respectively. He is being discharged today on his home medications which include albuterol 2.5 mg nebs four times a day, Symbicort 160/4.5 one puff twice a day, iron 325 mg daily, Flovent 120 two puffs twice a day, Percocet that he has at home every 8 hours as needed pain, and pantoprazole 40 mg daily. As his renal function is intact, I have given him permission to use either Aleve or ibuprofen over the counter for residual pain. I went over the radiation stubbs with Dr. Roper. While, things being common, this is probably malignant and the cells just are not shedding. It could be a radiation serositis. Nonetheless, I will see him in 7-10 days in post hospitalization followup. Should the pericardial effusion return, will have to undertake a pericardial window to the right and should a pleural effusion return we will consider a talc pleurodesis. His chest x-ray shows his lung fully expanded to the chest wall with a residual pneumopericardium. His discharge white count is 6.9 with a hemoglobin and hematocrit of 10.7 and 32.8 and a platelet count of 329 and he has electrolytes which show sodium of 130 with a BUN and creatinine of 9 and 0.6.
== END 2016-09-24 10:39 | disposition home or self-care (01) | DRG 207 ==
LOC: M ICU 11:40 → EDSTATUS 12:43
PROVIDERS: ADMIT Thoracic Surgery (Cardiothoracic Vascular Surgery); ATTEND Thoracic Surgery (Cardiothoracic Vascular Surgery)
PROC: 0W9D30Z Drainage of Pericardial Cavity with Drainage Device, Percutaneous Approach (ICD-10-PCS; principal; 2016-09-20)
PROC: 0W9B30Z Drainage of Left Pleural Cavity with Drainage Device, Percutaneous Approach (ICD-10-PCS; 2016-09-20)
DX: I30.9 Acute pericarditis, unspecified (principal); J91.0 Malignant pleural effusion; E46 Unspecified protein-calorie malnutrition; C78.01 Secondary malignant neoplasm of right lung; C79.89 Secondary malignant neoplasm of other specified sites; C34.12 Malignant neoplasm of upper lobe, left bronchus or lung; J44.9 Chronic obstructive pulmonary disease, unspecified; I10 Essential (primary) hypertension; Z92.21 Personal history of antineoplastic chemotherapy; Z92.3 Personal history of irradiation; Z87.891 Personal history of nicotine dependence; Z79.899 Other long term (current) drug therapy

== ENCOUNTER → 2016-09-20 | Outpatient (CLI) | payer BC ==
[~2016-09-20] MED LIST changes: +FERR325T3 PO; +FLUT22IN INH; +ISOVUE-370 76% 100ML VIAL (Q9967) As Ordered ONE; -LIDOCAINE 1% MDV 20ML VIAL As Ordered ONE; +OXYC1TAB23 PO
--- NOTE | 2016-09-20 10:51 | REP ---
CT ANGIO CHEST: HISTORY: Shortness of breath. CONTRAST: Isovue 370, 75 mL. COMPARISON: 07/12/2016. There are no filling defect in the main, right and left pulmonary arteries or their branches. A 2 cm cavitary nodule is present in the right lower lobe. This is increased in size compared to the previous study. A 1 cm parenchymal nodule is present in the left upper lobe, unchanged in size compared to the previous study. Scarring is present in the left upper lobe. A moderate size pleural effusion is present that has increased in size compared to the previous study. Atelectasis or infiltrate is present in the left lower lobe. A large pericardial effusion is present. Small lymph nodes less than 1 cm in size are present in the mediastinum. Atherosclerotic calcification is present in the thoracic aorta. Degenerative change is present in the thoracic spine. IMPRESSION: 1. There is no pulmonary embolism. 2. 2 cm right lower lobe nodule, increased in size compared to the previous study. 3. 1 cm left upper lobe nodule, unchanged compared to the previous study. 4. Left lower lobe atelectasis or infiltrate and moderate size pleural effusion. The effusion is increased in size. 5. Large pericardial effusion, increased compared to the previous study. Signed by Mac Gutierrez MD 09/20/2016 11:54 A
[2016-09-20 13:19] LABS: FREE T4 1.32 NG/DL (0.76-1.46); THYROXINE (T4) 8.7 UG/DL (4.5-12.0)
== END ==
LOC: M RAD 09:56
PROVIDERS: ATTEND Internal Medicine Medical Oncology
DX: I31.3 Pericardial effusion (noninflammatory) (principal); J90 Pleural effusion, not elsewhere classified; R91.1 Solitary pulmonary nodule; C34.90 Malignant neoplasm of unspecified part of unspecified bronchus or lung; R06.02 Shortness of breath
CPT/HCPCS: 71275; 84439; 84443; 84480; Q9967

== ENCOUNTER → 2016-10-04 | Outpatient (CLI) | payer BC ==
[~2016-10-04] VITALS: Ht 175.3 cm; Wt 66.7 kg
[~2016-10-04] MED LIST changes: +AVEL1TAB PO; +D5W 1,000 ML IV SCH; +FERR325T3 PO; +FLUT22IN INH; +LIDOCAINE 1% MDV 20ML VIAL As Ordered ONE; +MIDAZOLAM INJ 2 MG/2 ML VIAL (J2250) As Ordered ONE; +MUPIROCIN 2% OINT 22 GM TUBE TOP ONE; +OXYC1TAB23 PO; +PERCOCET PO; +POLYSPORIN TOPICAL OINTMENT 15GM TOP ONE; +PRED20TA PO; +ceFAZolin SOD 1 GM in D5W MINI-BAG PLUS 50 ML IV ONE
--- NOTE | 2016-10-04 12:15 | REP ---
Clinical: History of malignancy and pleural effusion. Comparison: 09/20/2016, 06/21/2016. Findings: Presumed the left apical scarring is again identified and remains relatively similar/stable to prior examinations. Moderate left pleural effusion is minimally decreased when compared to 09/20/2016. Underlying areas of left lobe consolidation/mass cannot be excluded. A 2 cm mass in the right lower lobe is increased in size from 06/21/2016 when measuring 1.3 cm. Small right pleural reaction adjacent to the 2 cm lesion is nonspecific. No further obvious pulmonary nodule or mass identified. The previously noted moderate to large pericardial effusion has essentially resolved with only small amount of residual pericardial fluid noted on current examination. Mediastinal and hilar adenopathy is difficult to exclude due to the lack of contrast and adjacent opacities. The heart and thoracic aorta again demonstrate atherosclerotic changes without cardiomegaly or aneurysm, respectively. Musculoskeletal structures are without focal osseous abnormality. [id number]-[id number] in the left anterior chest wall extends into the SVC. Limited upper abdomen demonstrates normal bilateral adrenal glands. Impression: 1. Moderate left pleural effusion minimally improved. Underlying areas of left lower lobe consolidation and mass cannot be excluded. Chronic-appearing interstitial changes extending to the left apex remains stable. 2. 2 cm mass in the right lower lobe is increased when compared to 06/21/2016 and demonstrates a small adjacent pleural reaction. 3. Previously noted [id number] pericardial effusion has essentially resolved. Signed by Tigre Christy MD 10/04/2016 12:06 P
[2016-10-04 14:40] VITALS: BP 118/79
--- NOTE | 2016-10-04 14:52 | REP ---
PORTABLE CHEST: AP portable view of the chest is performed and compared to a prior study of 09/28/2016. Left pleural drainage catheter is present. There is no pneumothorax. I do not see significant pleural fluid. Right pulmonary nodule is unchanged. The cardiomediastinal silhouette is unchanged. Left MediPort catheter is again noted. IMPRESSION: Left pleural drainage catheter. No pneumothorax or significant pleural effusion. Signed by Kota Moses MD 10/04/2016 03:33 P
[2016-10-04 14:53] LABS: LDH, BODY FLUID 132 U/L (NOT ESTABLISHED); TOTAL PROTEIN, BODY FLUID 4.1 G/DL (NOT ESTABLISHED)
[2016-10-04 15:03] LABS: LDH, BODY FLUID 160 U/L (NOT ESTABLISHED)
[2016-10-04 15:12] LABS: TNC PLEURAL FLUID 1103 cells/uL (0-20)
[2016-10-04 15:13] LABS: BF DIFF IF INDICATED? YES (NO); RBC PLEURAL FLUID < 10 (<10mm3 cells/uL)
[2016-10-04 15:58] LABS: CC BF DIFF EXAM CYTOCENTRIFUGE
--- NOTE | 2016-10-04 18:29 | RO ---
DATE OF PROCEDURE: 10/04/2016 PREPROCEDURE DIAGNOSIS: Recurrent left pleural effusion. POSTPROCEDURE DIAGNOSIS: Recurrent left pleural effusion. PROCEDURE: Insertion of left PleurX catheter. SURGEON: Dr. Bola Saleem ELECTROENCEPHALOGRAPHIC TECHNICIAN: ANESTHESIA: DESCRIPTION OF PROCEDURE: Under satisfactory moderate sedation, eventually achieved with 8 mg of Versed, the patient was prepped and draped in the usual sterile fashion. The entry and exit site were chosen. It was noted that there was a long catheter traversed across his elongated chest, and, therefore, it was planned to make two incisions in order to tunnel the catheter. The skin, intercostal muscles and pleura were infiltrated with 1% Xylocaine and the pleural fluid found with the exploring needle. Wire was placed. The exit site was chosen and also infiltrated along with the extent of the tunnel. Two incisions were made, one fpc between the entry and exit sites. Tunnel was then created with the PleurX catheter to go to the intermediate incision, which was then rethreaded through the incision to go to the exit incision. The tract was dilated over the wire and a peel-away introducer placed. PleurX catheter was placed with a peel-away introducer. The catheter was positioned without any kinks. Wounds were closed with running #4-0 Monocryl subcuticular suture and the catheter was secured to the abdominal wall with a #3-0 silk suture. The patient was drained of 850 mL of danette fluid, which was sent for all the requisite specimens, including cytologies, hematologies, bacteriologies and cell counts. The patient tolerated the procedure well and a chest x-ray is pending.
== END | disposition home or self-care (01) ==
LOC: M OPP 11:10
PROVIDERS: ATTEND Thoracic Surgery (Cardiothoracic Vascular Surgery)
DX: J90 Pleural effusion, not elsewhere classified (principal); C34.90 Malignant neoplasm of unspecified part of unspecified bronchus or lung; C76.0 Malignant neoplasm of head, face and neck; Z79.899 Other long term (current) drug therapy; Z79.52 Long term (current) use of systemic steroids
CPT/HCPCS: 32550; 71010; 71250; 82042; 82150; 82465; 82945; 83615; 83986; 84157; 84478; 87070; 87075; 87102; 87116; 87205; 87206; 88108; 88305; 88313; 89051; J0690; J2250

== ENCOUNTER → 2016-10-10 | Outpatient (CLI) | payer BC ==
[~2016-10-10] MED LIST changes: -AVEL1TAB PO; -D5W 1,000 ML IV SCH; -LIDOCAINE 1% MDV 20ML VIAL As Ordered ONE; -MIDAZOLAM INJ 2 MG/2 ML VIAL (J2250) As Ordered ONE; -MUPIROCIN 2% OINT 22 GM TUBE TOP ONE; -PERCOCET PO; -POLYSPORIN TOPICAL OINTMENT 15GM TOP ONE; -ceFAZolin SOD 1 GM in D5W MINI-BAG PLUS 50 ML IV ONE
--- NOTE | 2016-10-10 09:58 | REP ---
CHEST, TWO VIEWS: HISTORY: Pleural effusion. COMPARISON: 10/04/2016 The lungs are hyperinflated. A 1.7 cm nodule is present in the right lower lobe unchanged compared to the previous study. Patchy density is present in the left lower lobe consistent with atelectasis or infiltrate unchanged compared to the previous study. A left pleural catheter is present. There is no pneumothorax. The heart is normal in size. The pulmonary vasculature is normal in appearance. There are old compression fractures of several mid thoracic vertebral bodies. An Infusaport catheter is present. IMPRESSION: 1. Right lower lobe nodule unchanged compared to the previous study. 2. Left lower lobe atelectasis or infiltrate unchanged compared to the previous study. 3. A left pleural catheter is present. There is no pneumothorax. Signed by aMc Gutierrez MD 10/10/2016 10:05 A
== END ==
LOC: M SMT 09:28
PROVIDERS: ATTEND Thoracic Surgery (Cardiothoracic Vascular Surgery)
DX: J90 Pleural effusion, not elsewhere classified (principal); R91.1 Solitary pulmonary nodule; Z98.890 Other specified postprocedural states

== ENCOUNTER → 2016-10-13 | Outpatient (REF) | payer BC ==
[~2016-10-13] MED LIST changes: +AVEL1TAB PO; +PERCOCET PO
== END ==
LOC: M LAB REF 13:57
PROVIDERS: ATTEND Internal Medicine Medical Oncology
DX: C34.90 Malignant neoplasm of unspecified part of unspecified bronchus or lung (principal)

== ENCOUNTER 2016-10-15 14:21 | Emergency (ER) | payer BC ==
[~2016-10-15] VITALS: Ht 175.3 cm; Wt 65.3 kg
[~2016-10-15 14:21] MED LIST changes: -AVEL1TAB PO; -PERCOCET PO
[2016-10-15] MEDS ORDERED: PRED10TA PO (14:37)
[2016-10-15] MEDS ORDERED: PERCOCET PO (14:37)
[2016-10-15] MEDS ORDERED: IPRATROPIUM 0.5MG/ALBUTEROL 2.5MG INH SOL UD 3ML (DUONEB)(J7620) NEB ONE (15:00)
[2016-10-15] MEDS ORDERED: IPRATROPIUM 0.5MG/ALBUTEROL 2.5MG INH SOL UD 3ML (DUONEB)(J7620) NEB PRN (15:00)
[2016-10-15 15:07] LABS: VENOUS BASE EXCESS 0.7 (-2.0-2.0); VENOUS O2 SATURATION 64.8 % (60.0-80.0); VENOUS PARTIAL PRESSURE O2 32.9 mmHg (30.0-50.0); VENOUS STANDARD HCO3 24.2 MEQ/L; VENOUS TOTAL CO2 26.2 MEQ/L (24.0-28.0)
[2016-10-15 15:11] LABS: BASO % 0.1 % (0.0-1.0); EOS % 0.3 % (0.0-3.0); LARGE UNSTAINED CELL # 0.1 K/mm3 (0.0-0.4); LARGE UNSTAINED CELL % 0.4 % (0.0-4.0); LYMPH # 0.2 K/mm3 (1.5-4.5); LYMPH % 1.3 % (24.0-44.0); MEAN CORPUSCULAR HEMOGLOBIN 30.2 pg (27.0-33.0); MEAN CORPUSCULAR HGB CONC 32.1 g/dl (32.0-36.5); MEAN CORPUSCULAR VOLUME 94.1 fl (80.0-96.0); MONO # 0.4 K/mm3 (0.0-0.8); MONO % 2.9 % (0.0-5.0); NEUTROPHILS # 12.2 K/mm3 (1.8-7.7); PLATELET COUNT, AUTOMATED 335 k/mm3 (150-450); RED CELL DISTRIBUTION WIDTH 14.4 % (11.5-14.5); WHITE BLOOD COUNT 12.8 K/mm3 (4.0-10.0)
--- NOTE | 2016-10-15 15:31 | REP ---
Clinical: Cough. Dyspnea. Technique: PA and lateral. Comparison: 10/10/2016. Findings: Cardiac silhouette is stable. [id number] with tip in the SVC. Pleuroparenchymal changes involving the left upper lobe and left lower lobe are similar to prior examination. Pleuroperitoneal catheter overlies the left lower lung and left upper quadrant stable in position. Residual left pleural effusion/atelectasis cannot be excluded. Right hemithorax again demonstrates stable pulmonary mass. No obvious new, acute process when compared to prior examination. Skeletal structures intact. Impression: 1. Left-sided pleural parenchymal changes with possible residual left pleural effusion and atelectasis appear similar to prior examination. 2. Right lung nodule unchanged. 3. No new acute process when compared to 10/10/2016. Signed by Tigre Christy MD 10/15/2016 03:22 P
[2016-10-15 15:34] LABS: ANION GAP 7 MEQ/L (8-16); BLOOD UREA NITROGEN 14 MG/DL (7-18); CALCIUM LEVEL 9.6 MG/DL (8.8-10.2); CARBON DIOXIDE LEVEL 29 MEQ/L (21-32); CHLORIDE LEVEL 95 MEQ/L (98-107); CREATININE FOR GFR 0.68 MG/DL (0.70-1.30); GLOMERULAR FILTRATION RATE > 60.0 (>49); GLUCOSE, FASTING 107 MG/DL (80-110); POTASSIUM SERUM 4.1 MEQ/L (3.5-5.1); SODIUM LEVEL 131 MEQ/L (136-145)
[2016-10-15 15:41] LABS: ALBUMIN 3.6 GM/DL (3.2-5.2); BILIRUBIN,DIRECT 0.1 MG/DL (0.0-0.2); BILIRUBIN,TOTAL 0.5 MG/DL (0.2-1.0); TOTAL PROTEIN 7.2 GM/DL (6.4-8.2)
[2016-10-15] MEDS ORDERED: ISOVUE-370 76% 100ML VIAL (Q9967) As Ordered ONE (15:47)
--- NOTE | 2016-10-15 16:18 | REP ---
Clinical: Shortness of breath. Comparison: 10/04/2016. Technique: Axial contrast enhanced images from the thoracic inlet to the upper abdomen using 100 ml Isovue 370 intravenous contrast material with multiplanar re-formations. Findings: Satisfactory enhancement of the pulmonary vasculature is achieved and no filling defects are identified to suggest pulmonary embolus. Atherosclerotic changes to the thoracic aorta and coronary arteries noted without aortic aneurysm/dissection, cardiomegaly or pericardial effusion. The lung stubbs demonstrate chronic interstitial and emphysematous changes along with chronic stable left upper lobe/apical scarring. Small left pleural effusion with chest tube is decreased from prior examination. Left infrahilar consolidation measuring 3.2 cm similar to prior examination. 2 cm right lower lobe mass unchanged. Impression: No evidence for pulmonary embolus. Small left pleural effusion with chest tube decreased from prior examination. 3.2 cm left lower lobe/infrahilar consolidation. 2 cm right lower lobe mass unchanged. Chronic interstitial changes and emphysematous changes. Signed by Tigre Christy MD 10/15/2016 04:09 P
[2016-10-15] MEDS ORDERED: methylPREDNISolone INJ 125 MG/2 ML VIAL (J2930) IV ONE (16:30)
[2016-10-15] MEDS: IPRATROPIUM 0.5MG/ALBUTEROL 2.5MG INH SOL UD 3ML (DUONEB)(J7620) NEB SCH ×2 (16:39→16:48)
[2016-10-15] MEDS ORDERED: MOXIFLOXACIN 400 MG TAB PO ONE (16:45)
[2016-10-15 16:47] VITALS: BP 128/77
[2016-10-15] MEDS ORDERED: AVEL1TAB PO (16:48)
--- NOTE | 2016-10-15 18:39 | ECGEPIP ---
Stationary ECG Study [facility] - ED Test Date: 2016-10-15 Pat Name: MIKI PACHECO Department: Room: - Gender: M Director Of Marketing And Promotions: minna : [id number] Requested By: Saloni Galvan Order Number: [id number] Reading MD: Tin Kidd Measurements Intervals [place] Rate: 100 P: 72 LA: 138 QRS: 82 QRSD: 88 T: 90 QT: 320 QTc: 414 Interpretive Statements SINUS TACHYCARDIA POSSIBLE LEFT ATRIAL ENLARGEMENT NSTTW ABNORMALITIES SIMILAR TO 06/21/16 Electronically Signed On 10-15-2016 18:39:21 EDT by Tin Kidd
== END 2016-10-15 17:09 | disposition home or self-care (01) ==
LOC: M ED 15:16
DX: R06.00 Dyspnea, unspecified (principal); I10 Essential (primary) hypertension; J44.9 Chronic obstructive pulmonary disease, unspecified
CPT/HCPCS: 71020; 71275; 80048; 80076; 82550; 82553; 82803; 83605; 83880; 84443; 85025; 87040; 87804; 93005; 93041; 94640; 99285; J2930; Q9967

== ENCOUNTER → 2016-11-03 | Outpatient (REF) | payer BC ==
[~2016-11-03] MED LIST changes: +AVEL1TAB PO; +PERCOCET PO
== END ==
LOC: M LAB REF 13:11
PROVIDERS: ATTEND Internal Medicine Medical Oncology
DX: C34.90 Malignant neoplasm of unspecified part of unspecified bronchus or lung (principal); C06.2 Malignant neoplasm of retromolar area; C76.0 Malignant neoplasm of head, face and neck

== ENCOUNTER → 2016-11-07 | Outpatient (CLI) | payer BC ==
--- NOTE | 2016-11-07 17:06 | REP ---
CT Head without contrast HISTORY: Lung carcinoma COMPARISON: 02/02/2016 There is no intraparenchymal hemorrhage, acute infarct, mass or midline shift. The ventricular system and cortical sulci are dilated consistent with minimal volume loss. There is no extra cerebral collection. There is no fracture. The visualized sinuses are clear. IMPRESSION: Minimal volume loss. Signed by Mac Gutierrez MD 11/07/2016 04:57 P
== END ==
LOC: M RAD 16:30
PROVIDERS: ATTEND Internal Medicine Pulmonary Disease
DX: C34.31 Malignant neoplasm of lower lobe, right bronchus or lung (principal); R42 Dizziness and giddiness

== ENCOUNTER → 2016-11-17 | Outpatient (CLI) | payer BC ==
--- NOTE | 2016-11-18 02:30 | REP ---
Clinical: Pleural effusion. Technique: PA and lateral. Comparison: 10/27/2016. Findings: Diffuse bilateral pleuroparenchymal changes (left greater than right) appear relatively similar to prior examination. Moderate left pleural effusion/chronic reaction is unchanged. A vague 2 cm density in the right mid lung zone is again identified. Skeletal structures demonstrate stable degenerative changes. Impression: Bilateral pleuroparenchymal changes similar to prior examination (left greater than right) including chronic left pleural reaction and/or pleural effusion with underlying left lower lobe atelectasis and vague 2 cm lesion in the right mid/lower lung zone. Signed by Tigre Christy MD 11/18/2016 02:22 A
== END ==
LOC: M SMT 10:05
PROVIDERS: ATTEND Thoracic Surgery (Cardiothoracic Vascular Surgery)
DX: R91.8 Other nonspecific abnormal finding of lung field (principal); J90 Pleural effusion, not elsewhere classified

== ENCOUNTER → 2016-11-23 | Outpatient (CLI) | payer BC ==
--- NOTE | 2016-11-24 10:59 | REP ---
PET/CT: History: Staging, lung and head and neck cancer with new history of gastric cancer. Biopsy of fundal mass in the stomach from September 26, 2016 is reported as showing moderately differentiated adenocarcinoma. Comparisons: Comparison PET/CT studies are reviewed from July 27, 2016 and February 10, 2016. TECHNIQUE: 63 minutes following the intravenous injection of a 8.4 mCi dose of F-18 FDG, three-dimensional PET scintigraphy is acquired from the skull base to the proximal thighs. Triplanar noncontrast CT scanning is acquired through the same anatomic range for attenuation correction, and image registration with scan parameters optimized to minimize radiation exposure to the patient. PET scintigraphy and CT datasets were fused and displayed on a workstation with multiplanar and projection display capability. PET/CT Findings: The previously noted cavitary mass in the right lung superior segment right lower lobe is again seen and remains hypermetabolic. Maximum standard uptake value today in this lesion is 8.3. This nodule has enlarged since the prior PET/CT of July 27, 2016. It measures 20 mm today, 15 mm in July. Previously noted hypermetabolic enlarged lymph node in the left paratracheal region has resolved. There is a new hypermetabolic 1.0 cm lymph node in the subcarinal region with maximum standard uptake value of 4.8. There is a subcentimeter garima focus just to the left of the tracheoesophageal groove medial to the transverse aorta. This has maximum standard uptake value of 3.1. This is a new finding as well. There is a small to moderate left pleural effusion with a indwelling catheter seen. No hypermetabolic uptake is appreciated of the pleural lining. Mucosal uptake in the gastric fundus is a little more diffuse on today's PET/CT but not abnormal. Maximum standard uptake value 3.7, no clear mass lesions seen. The previously noted abnormal uptake in the floor the mouth and left upper neck has resolved. No mass or adenopathy is visible. No abnormal abdominal or pelvic uptake is seen. No abnormal skeletal hypermetabolic uptake is seen. Impression: Mixed response pattern. The superior segment right lower lobe lung nodule has increased somewhat in size and remains hypermetabolic. The left paratracheal lymphadenopathy has resolved but there is a new small node a little higher up in the left paratracheal region and there is a new subcarinal node, both of which are hypermetabolic. The floor of mouth uptake seen previously is resolved. Gastric fundal uptake may be somewhat improved. Signed by Jeff Porter MD 11/24/2016 12:59 P
== END ==
LOC: M PLARAD 15:20
PROVIDERS: ATTEND Internal Medicine Medical Oncology
DX: C16.9 Malignant neoplasm of stomach, unspecified (principal)
CPT/HCPCS: 78815; A9552

== ENCOUNTER → 2016-12-15 | Outpatient (CLI) | payer BC ==
--- NOTE | 2016-12-15 15:11 | ECHO ---
DATE OF PROCEDURE: 12/15/2016 REFERRING PHYSICIAN: Mari Harkins MD INDICATION: Chemotherapy drugs that may effect the heart. HEIGHT: 175 cm WEIGHT: 65.8 kg 2D MEASUREMENTS: Aortic root: 3.6 cm Left atrium: 3.0 cm Ventricular septum: 1.13 cm Posterior wall: 1.09 cm Left ventricle diastole: 3.9 cm Inferior vena cava: 0.9 cm DOPPLER MEASUREMENTS: Mild aortic regurgitation. Aortic valve velocity: 154 cm/s LVOT velocity: 81.2 cm/s Mitral E velocity: 51.3 cm/s Mitral A velocity: 67.6 cm/s Mitral deceleration time: 140 ms Mild tricuspid regurgitation. Estimated right ventricle systolic pressure 31 mmHg assuming a right atrial pressure of 5 mmHg. Pulmonary artery systolic pressure estimated to be 18 mmHg by pulmonary acceleration time method. MITRAL ANNULAR TISSUE DOPPLER: E prime septal: 9.0 cm/s E prime lateral: 7.9 cm/s DESCRIPTION: Rhythm was sinus. Image quality was fair. No pericardial effusion. This is a 2D, M-mode, color flow Doppler and pulse wave Doppler examination and included mitral annular tissue Doppler. No pericardial effusion. CONCLUSIONS: 1. Normal left ventricle internal dimensions and wall thickness. No left ventricle (LV) regional wall motion abnormalities. Normal LV systolic function. Left ventricular ejection fraction (LVEF) of 60%-65% by visual estimate. Probably normal LV diastolic function. 2. No pericardial effusion. 3. Moderate aortic valve sclerosis of a three-cuspid aortic valve. No aortic stenosis. Mild aortic regurgitation. 4. Mild mitral annular calcification. No mitral regurgitation. 5. Suggestive of slight elevation of estimated right ventricle systolic pressure.
== END ==
LOC: M CARPUL 09:08
PROVIDERS: ATTEND Internal Medicine Medical Oncology
DX: Z79.899 Other long term (current) drug therapy (principal)

== ENCOUNTER → 2016-12-22 | Outpatient (REF) | payer BC ==
[2016-12-23 10:20] LABS: CARCINOEMBRYONIC ANTIGEN < 0.5 NG/ML (<2.5)
== END ==
LOC: M LAB REF 13:24
PROVIDERS: ATTEND Internal Medicine Medical Oncology
DX: C34.90 Malignant neoplasm of unspecified part of unspecified bronchus or lung (principal)